=== PATIENT | male | born 1975 | race Caucasian/White ===

== ENCOUNTER 2016-12-10 09:27 | Emergency (ER) | payer BC, OTHER ==
[~2016-12-10] VITALS: Ht 175.3 cm; Wt 78.0 kg
[2016-12-10] MEDS ORDERED: KETOROLAC 60 MG/2 ML VIAL (J1885) IM ONE (11:00)
--- NOTE | 2016-12-10 12:01 | REP ---
Lumbar spine five views: Comparison is 05/13/2012. There is mild scoliosis convex right at the thoracolumbar junction, possibly positional. Vertebral body heights, interspacing alignment are normal and unchanged. No compression deformities. There is no spondylolysis or spondylolisthesis. This is unchanged. The pedicles, facets and sacroiliac articulations are unremarkable. Impression: Essentially negative lumbar spine except for mild scoliosis. No interval change. Signed by Per Cummings MD 12/10/2016 11:54 A
--- NOTE | 2016-12-10 12:12 | REP ---
SACRUM AND COCCYX: Four views of the sacrum and coccyx are performed and demonstrate no fracture, dislocation or intrinsic bone disease. IMPRESSION: No fracture or dislocation. Signed by Per Jiménez MD 12/10/2016 04:23 P
[2016-12-10] MEDS ORDERED: NAPR500T PO (12:18)
[2016-12-10] MEDS ORDERED: HYDR-3713 PO (12:18)
[2016-12-10] MEDS ORDERED: CYCL10TA PO (12:18)
[2016-12-10 12:34] VITALS: BP 123/81
== END 2016-12-10 12:35 | disposition home or self-care (01) ==
LOC: M ED 11:46
DX: S30.0XXA Contusion of lower back and pelvis, initial encounter (principal); W19.XXXA Unspecified fall, initial encounter; Y92.89 Other specified places as the place of occurrence of the external cause; Y93.89 Activity, other specified; Y99.8 Other external cause status; F17.210 Nicotine dependence, cigarettes, uncomplicated; Z91.013 Allergy to seafood
CPT/HCPCS: 72110; 72220; 96372; 99282; J1885

== ENCOUNTER → 2019-10-13 | Outpatient (CLI) | payer OTHER ==
[~2019-10-13] MED LIST: CYCL10TA PO; HYDR-3713 PO; NAPR-837 PO
--- NOTE | 2019-10-13 16:44 | REP ---
Left wrist series: Four views. History: Left wrist pain. Findings: Four views of the left wrist demonstrate overall normal mineralization. There is no evidence of fracture or erosive change. No bony destructive lesion is seen. Joint spaces are preserved. Impression: Negative radiographs of the left wrist. Electronically Signed by Pérez Morin MD 10/13/2019 04:36 P
--- NOTE | 2019-10-13 16:47 | REP ---
Clinical: Left hip pain. Technique: Neutral and frog lateral views of the left hip. Findings: No acute fracture dislocation. Minimal increased sclerosis to the acetabular roof noted with mild joint space narrowing. Impression: Mild generalized age-related changes. Electronically Signed by Robles High MD 10/13/2019 04:39 P
--- NOTE | 2019-10-13 16:53 | REP ---
Lumbar spine series: Five views. History: Acute left-sided low back pain. Comparison lumbar spine radiographs are from December 10, 2016. Findings: Lumbar vertebral body heights are preserved. Alignment is normal. Pedicles and posterior elements are intact and there is no evidence of spondylolysis or spondylolisthesis. There is moderate degenerative disc narrowing at L4-5. This is a little more pronounced than on the prior study. Mild vascular calcification is observed. Psoas margins are symmetric. Sacrum and SI joints are intact. Impression: Degenerative disc narrowing L4-5, more pronounced than on the December 10, 2016 prior study. No acute bony abnormality. Electronically Signed by Pérez Morin MD 10/13/2019 04:45 P
--- NOTE | 2019-10-13 17:03 | REP ---
Sacrum and coccyx: Four views. History: Coccygeal pain. Comparison study December 10, 2016. Findings: Frontal and lateral views of the sacrum and coccyx demonstrate intact SI joints. The bony sacrum is intact. No coccygeal fracture or displacement is seen. Presacral soft tissues are unremarkable. Impression: Negative sacral and coccygeal radiographs. No fracture visible. Electronically Signed by Pérez Morin MD 10/13/2019 04:55 P
== END ==
LOC: M LRY 16:14
PROVIDERS: ATTEND Nurse Practitioner Family
DX: M25.532 Pain in left wrist (principal); M25.552 Pain in left hip; M54.5 Low back pain; M53.3 Sacrococcygeal disorders, not elsewhere classified

== ENCOUNTER → 2020-01-05 | Outpatient (CLI) | payer OTHER ==
[~2020-01-05] MED LIST changes: +CYCL-707 PO; -CYCL10TA PO
--- NOTE | 2020-01-05 16:25 | REP ---
MAXILLOFACIAL CT STUDY WITHOUT CONTRAST: HISTORY: Acute recurrent maxillary sinusitis. Deviated nasal septum. No comparison imaging. CT FINDINGS: There is mild to moderate mucosal thickening affecting the sphenoid sinus bilaterally. Moderate mucosal thickening is seen in the ethmoid air cells bilaterally. Frontal sinuses are clear. There is mild mucosal thickening seen inferiorly in the right maxillary sinus. Maxillary sinuses are otherwise clear. Ostiomeatal complexes are patent. Bony nasal septum bows gently to the right without a visible beak. No nasal polyp is seen. Nasal turbinate soft tissues are symmetric. No intraorbital abnormality is seen. Visualized intracranial structures are unremarkable. IMPRESSION: Mild to moderate mucosal thickening in the sphenoid and ethmoid sinuses bilaterally. Minimal mucosal thickening in the right maxillary sinus. Mild bowing of the nasal septum to the right. Otherwise negative. Electronically Signed by Pérez Morin MD 01/05/2020 05:32 P
== END ==
LOC: M RAD 15:22
PROVIDERS: ATTEND Specialist
DX: J34.2 Deviated nasal septum (principal); J01.01 Acute recurrent maxillary sinusitis